=== PATIENT | female | born 1990 | race Caucasian/White ===

== ENCOUNTER 2016-06-22 06:15 | Inpatient (IN) | payer MEDICAID ==
[~2016-06-22] VITALS: Ht 162.6 cm; Wt 103.4 kg
--- NOTE | ~2016-06-22 | FD ---
ADMIT: 06/22/2016 RM/LOC: 227 [facility] MR#: [id number] [address] [address] [place] GENET Mat[address] [place] [address] Final Diagnosis SEX: F AGE: 25 : 1990 ADMISSION DATE: 06/22/2016 DISCHARGE DATE: 06/23/2016 FINAL DIAGNOSIS: Intrauterine at 40 weeks. PROCEDURE: Vaginal delivery. Josh Ott MD/ humaira JOB #: [id number] CC: Josh Ott MD, Attending Physician Josh Ott MD, Family Physician
--- NOTE | ~2016-06-22 | OR ---
ADMIT: 06/22/2016 RM/LOC: 227 [facility] MR#: [id number] [id number] [place], [place] [address] GENET BARBOSA [address] [place] [address] Operative/Delivery Room Report SEX: F AGE: 25 : 1990 SURGERY DATE: 06/22/2016 SURGEON: Josh Ott MD PRINCIPAL DIAGNOSIS: Term intrauterine . POSTOPERATIVE DIAGNOSIS: Term intrauterine . PROCEDURE: Spontaneous vaginal delivery. INDICATION: The patient is a 25-year-old white female, 2, para 1, who presented at 40 weeks' estimated gestational age in active labor, progressed through the labor in a satisfactory fashion to complete. ANESTHESIA: Epidural. ESTIMATED BLOOD LOSS: 250 mL. COMPLICATIONS: None. FINDINGS: Viable female infant, 7 pounds 6 ounces with scores of 8 at 1 and 9 at 5 minutes, delivered in a right occiput anterior presentation. PROCEDURE IN DETAIL: When the patient was noted to be complete and pushing, she was prepped and draped in the usual fashion in dorsal lithotomy position. Infant's head was allowed to deliver over an intact perineum. After restitution of the head, mouth and nose were cleared. Neck was examined for nuchal cord and none was noted. The anterior followed by the posterior shoulders were delivered followed by expulsion of the remainder of the . The was then placed on maternal stomach and delayed cord clamping was performed there for a minute. Placenta was then delivered intact with normal appearance. The uterine cervix was visualized and noted to be without lacerations or tears. Attention was then turned to the perineum. She was noted to have no significant perineal lacerations. The patient tolerated the procedure well and was taken to the recovery room in stable condition. All sponge, instrument, and needle counts were correct. Josh Ott MD/ modl JOB #: [id number] CC: Josh Ott, Attending Physician Josh Ott, Family Physician
--- NOTE | ~2016-06-22 | OR ---
ADMIT: 06/22/2016 RM/LOC: 227 [facility] MR#: [id number] [address] [address] GENET [address]A [address] [place] [address] Operative/Delivery Room Report SEX: F AGE: 25 : 1990 SURGERY DATE: 06/22/2016 SURGEON: Josh Ott MD PRINCIPAL DIAGNOSIS: Term intrauterine , . POSTOPERATIVE DIAGNOSIS: Term intrauterine , . PROCEDURE: Removal of previously placed epidural catheter. INDICATION: The patient is a 25-year-old white female, 2, para 1, who presented at 40 weeks' estimated gestational age in active labor. She had an epidural placed for pain control during labor. PROCEDURE IN DETAIL: The patient was placed in sitting position, stabilizing tape was removed and the epidural catheter was removed with tip intact. Epidural site was dressed with a Band-Aid. The patient tolerated the procedure well. Josh Ott MD/ sukumar JOB #: [id number] CC: Josh Ott, Attending Physician Josh Ott, Family Physician
[2016-06-24] MEDS ORDERED: TYLENOL #3 DPS1 TAB PO (14:02)
[2016-06-24] MEDS ORDERED: IRON325 M1 PO (14:02)
[2016-06-24] MEDS ORDERED: MOTRIN-DPS800 MG PO (14:02)
[2016-06-24] MEDS ORDERED: PRENATAL VIT1 TAB PO (14:02)
[2016-06-24] MEDS ORDERED: NIPPLECREAM TP (14:03)
--- NOTE | 2016-06-28 09:03 | HP ---
ADMIT: 06/22/2016 RM/LOC: 227 [facility] MR#: [id number] [address] [facility] [address] [place], [place] [address] [address] [place] [address] History and Physical SEX: F AGE: 25 : 1990 CHIEF COMPLAINT: Uterine contractions. HISTORY OF PRESENT ILLNESS: The patient is a 25-year-old, G2, P 1-0-0-1, at 40 weeks and 0 days today, presented for uterine contractions that started early this morning. The patient reports good movement. Denies vaginal bleeding, but she does think she possibly ruptured her membranes at home, stating that she felt that her underwear was soaked. However, AmniSure done here was negative. PAST MEDICAL HISTORY: Anemia in . SURGICAL HISTORY: 1. Abscess drainage in the perirectal area. 2. Colposcopy. SOCIAL HISTORY: Nonsmoker. No alcohol use during . No drug use. She is . MEDICATIONS: Include: 1. Iron. 2. vitamins. 3. Currently, Macrobid for current UTI. ALLERGIES: INCLUDE ZOLOFT. FAMILY HISTORY: Paternal grandmother has had a brain aneurysm, and there is also a cardiac arrest on the paternal side. Endometriosis in her maternal aunt and maternal grandmother. Rectal cancer paternal grandmother. Diabetes mellitus in her mother. Hypertension in father. There is also history of leukemia and lymphoma in the family. She has had no significant travel. REVIEW OF SYSTEMS: Negative otherwise mentioned in the HPI. Positive for uterine contractions. The possible loss of fluid, and negative vaginal bleeding, and good movement. PHYSICAL EXAMINATION: VITAL SIGNS: Blood pressure is between 114 to 120 systolic, and diastolic of 66 to 80, pulse is between 76 to 93. GENERAL: No acute distress. Alert and oriented x3, pleasant. HEENT: Normocephalic and atraumatic. Moist mucous membranes. Extraocular muscles are intact. Thyroid is nonpalpable. HEART: Regular rate and rhythm. LUNGS: Clear to auscultation bilaterally. Normal effort. No rhonchi or rales. GI: Soft, nontender, and gravid. EXTREMITIES: No edema. NEURO: Cranial nerves II through XII are grossly intact. On initial arrival to the floor, the patient was checked, and she found to be 3 cm dilated, but however on most recent check, she is now found to be 4 cm dilated, 70% effaced, and -2 station. ADMIT: 06/22/2016 RM/LOC: 227 [facility] MR#: [id number] [address] [address] GENET BAR[place]OSA [address] [place] [id number] History and Physical SEX: F AGE: 25 : 1990 OBSTETRICAL LABORATORY DATA: She is O positive. GBS negative. Diabetic screen was within normal limits. Quad screen was negative. Hepatitis B surface antigen was negative. RPR was nonreactive. Rubella immune. Gonorrhea and chlamydia were negative. HIV is negative. Currently, the patient has a UTI. Uterine contractions at every 8 to 10 minutes. heart rate at about 125 to 130 with positive accelerations, no decelerations. ASSESSMENT AND PLAN: This is a G2, P 1-0-0-1, at 40 weeks 0 days. Admit the patient to Labor and Delivery as she is making cervical change. We will augment labor with Pitocin if needed. Group B Streptococcus negative, so no antibiotics are needed. EDIT: 06/23/2016 0648 cliff Mcdaniel MD Resident / Josh Ott MD / sukumar JOB #: [id number] CC: Josh Ott, Attending Physician Josh Ott, Family Physician
== END 2016-06-23 18:05 | disposition home or self-care (01) | DRG 774 ==
LOC: BC 06:15 → 2LDRP 06:15 → BC 06:23 → 2LDRP 08:39 → BC 11:21 → 2LDRP 06-23 18:05
PROVIDERS: ADMIT Obstetrics & Gynecology
PROC: 10E0XZZ Delivery of Products of Conception, External Approach (ICD-10-PCS; principal; 2016-06-22)
DX: O75.3 Other infection during labor (principal); O99.02 Anemia complicating childbirth; D64.9 Anemia, unspecified; Z3A.40 40 weeks gestation of pregnancy; Z37.0 Single live birth